=== PATIENT | male | born 1980 | race African-American/Black ===

== ENCOUNTER 2017-12-02 05:25 | Emergency (ER) | payer MEDICAID ==
[~2017-12-02] VITALS: Ht 165.1 cm; Wt 96.0 kg
[2017-12-02] MEDS ORDERED: KETOROLAC 60MG/2ML VIAL IM ONE (08:15)
[2017-12-02] MEDS ORDERED: CYCLOBENZAPRINE 10MG TABLET PO ONE (08:15)
[2017-12-02 10:18] VITALS: BP 127/74
== END 2017-12-02 10:21 | disposition home or self-care (01) ==
LOC: ER 05:25
DX: M62.838 Other muscle spasm (principal); F17.210 Nicotine dependence, cigarettes, uncomplicated; F12.10 Cannabis abuse, uncomplicated
CPT/HCPCS: 71045; 96372; 99283; J1885; Z7610

== ENCOUNTER 2018-09-22 09:16 | Emergency (ER) | payer MEDICAID ==
[~2018-09-22] VITALS: Ht 175.3 cm; Wt 91.0 kg
[2018-09-22 09:33] VITALS: BP 125/76
== END 2018-09-22 15:12 | disposition left against medical advice (07) ==
LOC: ER 09:16
DX: R05 Cough (principal); Z53.21 Procedure and treatment not carried out due to patient leaving prior to being seen by health care provider